=== PATIENT | male | born 1955 | race Caucasian/White ===

== ENCOUNTER 2018-06-21 08:34 | Outpatient (CLI) | payer BC, SELFPAY ==
[2018-06-21 11:36] LABS: CREATININE 0.97 mg/dL (0.70-1.30); Potassium 4.1 mmol/L (3.5-5.1)
[2018-06-21 12:19] LABS: Hemoglobin A1C 7.9 % (4.5-6.2)
== END 2018-06-21 08:54 ==
PROVIDERS: PCP Family Medicine; Visit Provider Family Medicine
DX: I10 Essential (primary) hypertension (principal); E11.9 Type 2 diabetes mellitus without complications
CPT/HCPCS: 36415; 82565; 83036; 84132

== ENCOUNTER 2018-11-15 08:37 | Outpatient (CLI) | payer BC, SELFPAY ==
[2018-11-15 12:21] LABS: Hemoglobin A1C 7.9 % (4.5-6.2)
== END 2018-11-15 08:57 ==
PROVIDERS: PCP Family Medicine; Visit Provider Family Medicine
DX: E11.9 Type 2 diabetes mellitus without complications (principal)
CPT/HCPCS: 36415; 83036

== ENCOUNTER 2019-03-28 09:46 | Outpatient (CLI) | payer BC, SELFPAY ==
[2019-03-28 11:42] LABS: Calculated LDL 113 mg/dL; Cholesterol 181 mg/dL (50-200); HDL Cholesterol 44 mg/dL (40-60); Triglyceride 123 mg/dL (30-150)
[2019-03-31 12:21] LABS: Albumin 60.9 % (55.8-66.1); Monoclonal Spike 3.6 %; Total Protein 6.8 g/dl (6.3-8.2)
== END 2019-03-28 10:06 ==
PROVIDERS: PCP Family Medicine; Visit Provider Family Medicine
DX: E11.9 Type 2 diabetes mellitus without complications (principal); D47.2 Monoclonal gammopathy
CPT/HCPCS: 36415; 80061; 83721; 84165

== ENCOUNTER 2019-09-26 09:11 | Outpatient (CLI) | payer BC, SELFPAY ==
[2019-09-26 11:36] LABS: CREATININE 1.15 mg/dL (0.70-1.30); Potassium 3.7 mmol/L (3.5-5.1)
[2019-09-26 11:49] LABS: Hemoglobin A1C 9.1 % (3.8-5.6)
== END 2019-09-26 09:31 ==
PROVIDERS: PCP Family Medicine; Visit Provider Family Medicine
DX: E11.9 Type 2 diabetes mellitus without complications (principal)
CPT/HCPCS: 36415; 82565; 83036; 84132

== ENCOUNTER 2019-11-21 01:13 | Outpatient (CLI) | payer BC, SELFPAY ==
[2019-11-21 13:25] LABS: Hemoglobin A1C 9.4 % (3.8-5.6)
== END 2019-11-21 01:33 ==
PROVIDERS: PCP Family Medicine; Visit Provider Family Medicine
DX: R73.9 Hyperglycemia, unspecified (principal)
CPT/HCPCS: 36415; 83036

== ENCOUNTER 2021-01-14 11:36 | Outpatient (CLI) | payer MEDICARE, BC, SELFPAY ==
[2021-01-14 12:30] LABS: Abs Immature Grans 0.01 10^3/uL (0.0-0.06); Absolute Basophil Count 0.05 10^3/uL (0.0-0.2); Absolute Lymphocyte Count 1.35 10^3/uL (1.2-3.4); Absolute Monocyte Count 0.52 10^3/uL (0.1-0.8); Absolute Neutrophil Count 3.76 10^3/uL (1.2-6.7); Basophils % 0.8; ESR 22 mm//hr (0-20); HCT 30.1 % (40.0-50.0); HGB 10.3 g/dL (13.5-17.5); Immature Grans % 0.2; Lymphocytes % 22.5; MCH 28.8 pg (27.0-33.0); MCHC 34.2 % (32.0-36.0); MCV 84.1 fL (80-95); MPV 8.9 fL (8.0-11.0); Monocytes % 8.7; Neutrophils % 62.8; Nucleated RBC 0 %; Platelet Count 258 10^3/uL (130-400); RBC 3.58 10^6/uL (4.36-5.78); RDW 12.3 % (11.8-14.1); WBC 5.99 10^3/uL (4.4-10.8)
[2021-01-14 13:38] LABS: ALT 24 U/L (16-63); AST 17 U/L (15-37); Albumin 3.8 g/dL (3.4-5.0); Alkaline Phosphatase 69 U/L (46-116); BUN 38 mg/dL (7-18); Bilirubin, Total 0.3 mg/dL (0.2-1.0); C-Reactive Protein 1.42 mg/dL (0.0-0.3); Calcium 9.6 mg/dL (8.5-10.1); Chloride 101 mmol/L (98-107); Creatine Kinase 171 U/L (39-308); Glucose 170 mg/dL (74-106); Potassium 3.8 mmol/L (3.5-5.1); Sodium 140 mmol/L (136-145); Total Protein 7.6 g/dL (6.4-8.2)
[2021-01-15 14:28] LABS: Iron 58 ug/dL (65-175); Total Iron Binding Capacity 267 ug/dL (250-450); Transferrin Sat 22 % (20-55)
[2021-01-15 14:55] LABS: Ferritin 193 ng/mL (26-388); Vitamin B12 198 pg/mL (193-986)
[2021-01-17 13:27] LABS: Albumin 55.1 % (55.8-66.1); Comment (See Note); Monoclonal Spike 2.2 % (None Seen); Total Protein 7.3 g/dL (6.3-8.2)
[2021-01-21 10:03] LABS: Methylmalonic Acid 0.42 nmol/mL (<=0.40)
== END 2021-01-14 11:37 | disposition home or self-care (01) ==
LOC: LOS 11:37
PROVIDERS: PCP Family Medicine; Visit Provider Family Medicine
DX: R10.9 Unspecified abdominal pain (principal); F48.8 Other specified nonpsychotic mental disorders; F32.9 Major depressive disorder, single episode, unspecified; E11.9 Type 2 diabetes mellitus without complications; R73.9 Hyperglycemia, unspecified; D47.2 Monoclonal gammopathy; I10 Essential (primary) hypertension; N18.9 Chronic kidney disease, unspecified; M62.50 Muscle wasting and atrophy, not elsewhere classified, unspecified site
CPT/HCPCS: 36415; 80053; 80186; 82550; 85652; 82607; 82728; 83540; 83550; 84165; 85025; 86140

== ENCOUNTER → 2021-01-24 10:56 | Outpatient (BNVA) | payer MEDICARE, SELFPAY | PROVIDERS: PCP Family Medicine; Referring Provider Family Medicine; Visit Provider Psychiatry & Neurology Neurology | DX: R53.1 Weakness (principal); R25.2 Cramp and spasm; D64.9 Anemia, unspecified; E11.22 Type 2 diabetes mellitus with diabetic chronic kidney disease; N19 Unspecified kidney failure; I10 Essential (primary) hypertension | CPT/HCPCS: 99215; G2212 ==

== ENCOUNTER 2021-01-31 01:00 | Outpatient (CLI) | payer MEDICARE, SELFPAY ==
--- NOTE | 2021-01-31 07:45 | DI.US_ITS ---
Exam(s) US RENAL EXAM: US RENAL CLINICAL HISTORY: acute renal insufficiency,RENAL FAILURE,N19. TECHNIQUE: Vallejo scale, color and spectral Doppler were used. COMPARISON: CT RENAL COLIC WO CONTRAST from 03/25/2018 FINDINGS: Renal size in cm: Right: 9. Left: 9. Echogenicity: Normal. Hydronephrosis: No. Cyst or mass: 5.4 x 4.4 x 4.2 cm right renal cyst. This is unchanged compared to the prior CT scan. Nephrolithiasis: No. Other findings: Mild bilateral renal cortical thinning. Bladder:Bladder is inadequately distended limiting evaluation. Ureteral jets: Right: Not visualized on this examination. Left: Not visualized on this examination. Prevoid vol:11 cc Postvoid vol:Could not be evaluated on this examination. Prostate: 48 cc Renal color flow: Symmetric and within normal limits. IMPRESSION: 1. Inadequate evaluation of the urinary bladder due to poor prevoid volume. 2. Renal cortical atrophy. 3. Prostatic enlargement. DATA REPOSITORY:
== END 2021-01-31 01:20 ==
PROVIDERS: PCP Family Medicine; Visit Provider Family Medicine
DX: N19 Unspecified kidney failure (principal); N40.0 Benign prostatic hyperplasia without lower urinary tract symptoms; N28.89 Other specified disorders of kidney and ureter
CPT/HCPCS: 76770

== ENCOUNTER 2021-02-22 10:20 | Outpatient (CLI) | payer MEDICARE, SELFPAY ==
[2021-02-22 12:42] LABS: Bilirubin Small (Negative); Blood Trace-intact (Negative); Clarity Clear (Clear); Glucose 500 mg/dL (Negative); Ketones Negative (Negative); Leukocyte Esterase Negative (Negative); Nitrite Negative (Negative); Specific Gravity >= 1.030 (1.005-1.025); pH 5.5 (5-8)
[2021-02-22 12:45] LABS: Anion Gap 11.1 mmol/L (3-11); BUN 23 mg/dL (7-18); CO2 26.9 mmol/L (21.0-32.0); CREATININE 1.8 mg/dL (0.70-1.30); Chloride 100 mmol/L (98-107); Estimated GFR 38.06 (mL/min/1.73m2); Glucose 232 mg/dL (74-106); Potassium 3.8 mmol/L (3.5-5.1); Sodium 138 mmol/L (136-145)
[2021-02-22 13:01] LABS: COMMENT (LAB VIEW ONLY) 236.78 mg/dL
[2021-02-23 08:55] LABS: Homocysteine 11.8 umol/L (5.0-13.9)
== END 2021-02-22 10:21 | disposition home or self-care (01) ==
PROVIDERS: PCP Family Medicine; Visit Provider Family Medicine
DX: I10 Essential (primary) hypertension (principal); E87.1 Hypo-osmolality and hyponatremia; E11.9 Type 2 diabetes mellitus without complications; N19 Unspecified kidney failure; E53.8 Deficiency of other specified B group vitamins; R82.998 Other abnormal findings in urine
CPT/HCPCS: 36415; 80048; 83090; 81003; 81015; 82043; 82570

== ENCOUNTER 2021-08-12 03:04 | Outpatient (CLI) | payer MEDICARE, SELFPAY ==
[2021-08-12 13:16] LABS: Anion Gap 7.5 mmol/L (3-11); BUN 23 mg/dL (7-18); CO2 28.5 mmol/L (21.0-32.0); CREATININE 1.8 mg/dL (0.70-1.30); Calcium 8.9 mg/dL (8.5-10.1); Chloride 105 mmol/L (98-107); Estimated GFR 37.94 (mL/min/1.73m2); Glucose 142 mg/dL (74-106); Potassium 4.2 mmol/L (3.5-5.1); Sodium 141 mmol/L (136-145)
== END 2021-08-12 03:05 | disposition home or self-care (01) ==
LOC: LOS 03:04
PROVIDERS: PCP Family Medicine; Visit Provider Family Medicine
DX: E87.1 Hypo-osmolality and hyponatremia (principal)
CPT/HCPCS: 36415; 80048

== ENCOUNTER 2022-02-15 08:52 | Outpatient (CLI) | payer MEDICARE, SELFPAY ==
[2022-02-16 13:30] LABS: Albumin 53.7 % (55.8-66.1); Albumin g/dL 3.7 g/dL (3.6-5.2); Comment (See Note); Monoclonal Spike 3.5 % (None Seen); Monoclonal Spike g/dL 0.2 g/dL (None Seen); Total Protein 6.9 g/dL (6.3-8.2)
== END 2022-02-15 08:53 | disposition home or self-care (01) ==
LOC: LOS 08:53
PROVIDERS: PCP Family Medicine; Referring Provider Family Medicine; Visit Provider Family Medicine
DX: N19 Unspecified kidney failure (principal)
CPT/HCPCS: 36415; 84165

== ENCOUNTER → 2022-03-14 07:29 | Outpatient (BNVA) | payer MEDICARE, SELFPAY | PROVIDERS: PCP Family Medicine; Referring Provider Family Medicine; Visit Provider Surgery | DX: Z86.010 Personal history of colon polyps (principal); E11.9 Type 2 diabetes mellitus without complications; N18.32 Chronic kidney disease, stage 3b; Z12.11 Encounter for screening for malignant neoplasm of colon ==

== ENCOUNTER 2022-03-27 07:39 | Day surgery (SDC) | payer MEDICARE, SELFPAY ==
--- NOTE | 2022-03-27 06:53 | COLE_ITS ---
Colonoscopy Report Date of procedure: 03/27/22 Pre-op diagnosis general: Colon Cancer Screening and Hx of polyps Procedure: Colonoscopy with polypectomy Surgeon: Armida Cobb Anesthesia Type: General:No Airway Estimated blood loss (mL): 2 Pathology: other (ascending colon polyp) Complications: None Disposition: same day Indications: Osvaldo is back to see me today for a follow-up colonoscopy.? He was noted to have 4 tubular adenomas back in 2018.? He has had no changes in bowel habits, melena, hematochezia or unintentional weight loss.? He has no family history of colon cancer.? The procedure was discussed with him and his in detail.? We reviewed the risks and benefits as well as complications.? Because of his renal disease we will give him GoLytely for his prep instead of MiraLAX. Prep: Miralax/Dulcolax Procedure Start Time: 09:26 Procedure End Time: 09:46 Retraction Time: 11 minutes Findings: One small sessile polyp Procedure Description: After informed consent was obtained the patient was taken to the procedure room and placed in a left decubitous position. Monitors were applied and a time out was done. The patients name, date of , procedure, allergies to medications and metal in their body was reviewed. The patient was then sedated. Once sedated and comfortable a rectal exam was done. External exam was normal. Internal exam revealed a normal sphincter tone and no palpable masses. The prostate felt smooth but enlarged. The scope was then introduced and retro-flexed. No internal hemorrhoids, polyps or masses were identified on retro-flexion. The scope was then advanced to the cecum without difficulty. The ileocecal vlave and appendiceal orifice were michael ntified. The prep was good. The scope was then slowly retracted over 11 minutes back into the rectum. Polyps were removed with cold forceps in the ascending colon. There was no diverticulosis noted. The scope was removed and the patient was woken up and taken back to Same day surgery in stable condition. The patient tolerated the procedure well and there were no immediate complications. Follow up: The patient should follow up in 5 years unless they develop changes in bowel habits or other new gastrointestinal complaints.
--- NOTE | 2022-03-27 06:54 | W.PM.DSUDISC ---
Discharge Plan Disposition Patient Disposition: HOME Condition: Good Discharge Details Reason For Visit: colon cancer screening and hx of polyps Attending Provider: Armida Cobb Primary Care Provider: Kit Sawyer Home Meds and New Rx's Prescriptions: Continued (DME) lancets [OneTouch Delica Lancets] 33 gauge misc 1 ea Miscellaneous DAILY Qty: 100 4RF Label Comments: pt. states he hasn't used in over 6 mo. Rx Instructions: DX:E11.9 test once daily (DME) blood sugar diagnostic Strip 1 ea Miscellaneous DAILY Qty: 100 3RF Rx Instructions: test sugar daily triamcinolone acetonide 0.1 % ointment 1 applic topical BID PRN (Reason: leg rash) Qty: 30 2RF fluticasone propionate 50 mcg/actuation spray,suspension 100 mcg NS DAILY PRN (Reason: allergy symptoms) Qty: 60 2RF cyanocobalamin (vitamin B-12) 1,000 mcg tablet 1,000 mcg PO DAILY Qty: 90 3RF metoprolol tartrate 50 mg tablet 50 mg PO BID Qty: 180 4RF atorvastatin 20 mg tablet 20 mg PO QPM Qty: 90 2RF glipizide 10 mg tablet 5 mg PO BID Qty: 180 2RF Rx Instructions: dose reduction 07/06/21 lisinopril 20 mg tablet 20 mg PO BID Qty: 180 3RF Rx Instructions: increase per nephrology nifedipine 30 mg tablet extended release 24hr 60 mg PO DAILY Qty: 90 2RF Rx Instructions: double dose 06/30/20 MJS potassium chloride 10 mEq capsule, extended release 10 meq PO DAILY Qty: 90 3RF Janumet 50-1,000 mg tablet 0.5 tab PO BID Qty: 180 3RF Rx Instructions: dose reduction 02/15/22 omega-3 fatty acids 1,000 MG capsule 1,000 mg PO DAILY Discontinued peg 3350-electrolytes [Golytely] 236-22.74-6.74 -5.86 gram recon soln 240 ml PO Q10M Qty: 4000 0RF Rx Instructions: until fecal effluent is clear Discharge Instructions Additional Instructions: Findings: One small polyp Follow up: 5 years Please call if you develop: fevers >101.5 Nausea or Vomiting Abdominal pain that is not transient Rectal bleeding that is more then a tbsp A hard abdomen and inability to pass gas DAY SURGERY UNIT POST ENDOSCOPY INSTRUCTIONS Instructions for everyone who is given Anesthesia: For your safety, please do the following for the next 24 Hours: a. Do not drive or operate dangerous equipment b. Do not drink alcohol beverages or use any recreational drugs for the first 24 hours or while taking pain medications. The medications in your body may have a reaction that can be dangerous. c. Do not make any important decisions or sign any important papers 1. Generally there are no restrictions on your activity after a day or so has gone by, but you may feel a bit fatigued for a few days. 2. After you arrive home you may have a light meal and return to a normal diet as you can tolerate it without feeling sick to your stomach. 3. After surgery, you may feel pain or discomfort. This should be only transient, but if it persists please contact your doctor. 4. If there are any questions regarding the findings of your procedure, please feel free to contact your doctor. 6. If you are unable to contact your doctor with a problem, contact the hospital at [phone]. 7. Continue all your regular medications unless directed otherwise. I understand the above instructions and have no questions. Signature of Patient or Responsible Adult Escort Date/Time Name of Responsible Adult Escort Signature of Nurse Date/Time Activity:: Activity as Tolerated Diet:: As Tolerated Discharge Orders Discharge Orders: Discharge Order (Routine); Ordered 03/27/22 Ordered By: Armida Cobb
--- NOTE | 2022-03-27 06:59 | W.ANESPRE ---
General Info Date of Service Date Performed: 03/27/22 Height: 5 ft 6 in Weight: 81.817 kg Body Mass Index (BMI): 29.1 Surgical Procedure: Operation Date: 03/27/22 09:35 Proposed Procedure Side Surgeon p Colonoscopy Armida Cobb MD Meds Allergies and Home Medications Allergies Allergy/AdvReac Type Severity Reaction Status Date / Time No Known Allergies Allergy Verified 03/27/22 07:53 Home Medication Medication Instructions Recorded omega-3 fatty acids 1,000 mg 1,000 mg PO DAILY 12/02/12 capsule blood sugar diagnostic #100 strips 09/26/19 fluticasone propionate 50 100 mcg NS DAILY PRN allergy 02/12/20 mcg/actuation nasal symptoms #60 sprays spray,suspension lancets 33 gauge (OneTouch Delica #100 ea 06/22/20 Lancets) triamcinolone acetonide 0.1 % 1 applic topical BID PRN leg rash 09/16/21 topical ointment #30 grams cyanocobalamin (vitamin B-12) 1,000 mcg PO DAILY #90 tabs 11/21/21 1,000 mcg tablet metoprolol tartrate 50 mg tablet 50 mg PO BID #180 tab-caps 11/21/21 atorvastatin 20 mg tablet 20 mg PO QPM #90 tabs 02/22/22 glipizide 10 mg tablet 5 mg PO BID #180 tab-caps 02/22/22 lisinopril 20 mg tablet 20 mg PO BID #180 tabs 02/22/22 nifedipine 30 mg tablet,extended 60 mg PO DAILY #90 tab-caps 02/22/22 release 24 hr potassium chloride 10 mEq 10 meq PO DAILY #90 tab-caps 02/23/22 capsule,extended release peg 3350-electrolytes 236 240 ml PO Q10M #4,000 mL 03/14/22 gram-22.74 gram-6.74 gram-5.86 gram solution (Golytely) sitagliptin 50 mg-metformin 1,000 0.5 tab PO BID #180 tab-caps 03/17/22 mg tablet (Janumet) Current Visit Medications: Current Medications Generic Name Dose Route Start Last Admin Trade Name Freq PRN Reason Stop Dose Admin Hyoscyamine Sulfate 0.125 mg 03/27/22 06:54 Hyoscyamine 0.125 Mg Sl/Oral/Chew SL DIRECTED PRN Ringer's Solution 1,000 mls @ 80 mls/hr 03/27/22 06:00 IV 04/23/22 23:59 [facility] IV Miscellaneous Supplies 1 each 03/27/22 06:00 Iv Access IV 04/23/22 23:59 DIRECTED DUSTY Ondansetron HCl 4 mg 03/27/22 06:54 Ondansetron 4 Mg/2 Ml Vial IVP Q4H PRN PRN Nausea / Vomiting Sodium Chloride 0 ml 03/27/22 06:00 Normal Saline Flush 10 Ml Syr IV 04/23/22 23:59 PRN PRN Sodium Chloride 0 ml 03/27/22 06:00 Normal Saline 10 Ml Vial IJ 04/23/22 23:59 DIRECTED PRN Sterile Water 0 ml 03/27/22 06:00 Water,Injection,Sterile 10 Ml Vial IJ 04/23/22 23:59 DIRECTED PRN PFSH Active Problems Active Problems: Problem Status Onset Code Screening for colon cancer Z12.11 Renal failure N19 Anemia D64.9 Weakness R53.1 MGUS (monoclonal gammopathy of unknown significance) D47.2 Diabetes mellitus E11.9 Tubular adenoma 04/08/18 D36.9 Medical History Medical History B12 deficiency Controlled diabetes mellitus (12/23/12) Depressive disorder Diabetic nephropathy with proteinuria DM (diabetes mellitus) Elbow pain, right prn ibuprofen or tylenol Essential hypertension (07/23/13) HTN (hypertension) Hyperlipidemia with target LDL less than 100 Hypertension Leg cramps Low blood sugar Lumbar radiculopathy 04/22/13 [place] [facility] [place] L4[place]L5 LATERAL DISCECTOMY Muscle wasting Nephrolithiasis Non-alcoholic fatty liver disease Non-alcoholic fatty liver disease Spinal stenosis Surgical History Surgical History Colonoscopy - [facility] (04/08/18) History of discectomy LATERAL DISCECTOMY (04/22/13) RIGHT L4-L5 FAR [place] [place] Tobacco Smoking/Tobacco Use Status: Never Passive smoking exposure: No Second hand exposure: Yes Alcohol Alcohol Intake: current Alcohol intake frequency: holidays/special occasions only Alcohol type: beer Substance Use Substance use: Never Substance use type: does not use Vital Signs and Lab Results Lab Results Blood Type / Crossmatch: No Data to Display Complete Blood Count: No Data to Display Complete Metabolic Panel: No Data to Display Liver Function Panel: No Data to Display Coagulation Panel: No Data to Display Cardiac Panel: No Data to Display Arterial Blood Gas: No Data to Display Venous Blood Gas: No Data to Display Pancreas Panel: No Data to Display Thyroid Panel: No Data to Display Infectious Disease: No Data to Display Blood Cultures: No Data to Display Toxicology Panel: No Data to Display Anesthesia Assessment and Plan Anesthesia History Personal History: No History of Anesthesia Complications Family History: No Family History of Anesthesia Complications Exercise Tolerance Exercise Tolerance: Metabolic Equivalents>4 Pertinent Negatives Pertinent Negatives: No Symptoms of GERD, No Major Cardiovascular Symptoms or Complaints, No Major Pulmonary Symptoms or Complaints and No History of CVA/TIA Cardiac & Pulmonary Exam Cardiac Exam: Normal S1/S2 Heart Sounds Pulmonary Exam: Clear Bilateral Breath Sounds Implantable Cardiac Device Does patient have a Pacemaker or an ICD?: No Airway Exam Known Difficult Airway: No Mallampati Class: 2 Mouth Opening: Normal (> 3cm) Thyromental Distance: Greater than 3 cm Neck Range of Motion: Full ROM Neck Circumference: Normal Teeth Condition: Generalized Poor Dentition ASA Classification ASA Score: ASA 3 Emergency Case?: No NPO Status NPO Status: NPO Clears >2 hours, Solids >8 hours Anesthesia Plan Resuscitation Status: Full Code Anesthesia Technique: General Anesthesia Airway Planned: Natural Airway Monitors Used: Standard Monitors
[2022-03-27 07:40] VITALS: BP 141/99; PULSE 81; RESP 18; TEMP 36.7; O2SAT 98
[2022-03-27] MEDS: Lactated Ringers 1,000 ML 80 ML IV (08:23)
[2022-03-27 09:21] VITALS: BMI 29.1
--- NOTE | 2022-03-27 09:37 | BOWEL_PTH ---
PATIENT: Osvaldo Arcos LOC: [facility] U#:[id number] AGE/SX: 66/M ROOM: RE03/27/[address]: Armida Cobb MD : [id number] BED: DIS: 03/27/2022 SPEC #: [id number] RECD: 03/27/22 13:03 STATUS: HUMBERTO REQ #: [id number] CHRISTINA: 03/27/22 09:[address]: Armida Cobb DEPT: Surgical Specimen RECD BY: Evelyn Shay ENTERED: 03/27/22 13:04 SP TYPE: Bowel OTHR DR: Kit Sawyer MD Tissues: 1 - BIOPSY BOWEL Procedures: GROSS AND MICRO LEVEL 4 Comments: [id number]
[2022-03-27 09:50] VITALS: BP 119/82; PULSE 72; RESP 16; TEMP 36.5; O2SAT 98
[2022-03-27 10:20] VITALS: BP 132/80; PULSE 80; RESP 18; TEMP 36.4; O2SAT 98
--- NOTE | 2022-03-27 13:07 | W.ANESPOSTOP ---
Postoperative Evaluation Date, Time and Location Date Performed: 03/27/22 Time Performed: 12:55 Patient Location: Day Surgery Unit Vital Signs Most Recent Imported Vital Signs: Most Recent Vital Signs Temp Pulse Resp BP Pulse Ox 36.4 C L 80 18 132/80 98 03/27/22 10:20 03/27/22 10:20 03/27/22 10:20 03/27/22 10:20 03/27/22 10:20 Pain Score Most Recent Pain Score: Most Recent Pain Score Pain Level 0 03/27/22 10:20 Assessment Mental Status: Awake (Alert & Oriented to Patient Baseline) Airway and Respiratory Function: Patent airway with normal (patient baseline) respiratory exam Cardiovascular Function: Hemodynamically Stable Hydration Status: Adequately Hydrated Nausea & Vomiting: No Nausea or Vomiting Pain: Pt. Denies Any Pain Peripheral Nerve Block: Patient did not receive a nerve block Postoperative Comments:: Seen earlier today. Patient was appropriate to go home.
== END 2022-03-27 10:30 | disposition home or self-care (01) ==
PROVIDERS: PCP Family Medicine; Visit Provider Surgery
PROC: 0DJD8ZZ Inspection of Lower Intestinal Tract, Via Natural or Artificial Opening Endoscopic (ICD-10-PCS; CPT 45378; principal; 2022-03-27 09:30)
DX: Z12.11 Encounter for screening for malignant neoplasm of colon (principal); K63.5 Polyp of colon; E11.9 Type 2 diabetes mellitus without complications; I10 Essential (primary) hypertension; K76.0 Fatty (change of) liver, not elsewhere classified; D47.2 Monoclonal gammopathy; Z86.010 Personal history of colon polyps
CPT/HCPCS: 45380; 88305

== ENCOUNTER 2022-05-17 02:44 | Outpatient (CLI) | payer MEDICARE, SELFPAY ==
[2022-05-17 12:42] LABS: CREATININE 2.1 mg/dL (0.70-1.30); Estimated GFR 31.76 (mL/min/1.73m2)
== END 2022-05-17 02:45 | disposition home or self-care (01) ==
LOC: LOS 02:44
PROVIDERS: PCP Family Medicine; Visit Provider Family Medicine
DX: I10 Essential (primary) hypertension (principal)
CPT/HCPCS: 36415; 82565

== ENCOUNTER 2022-05-18 12:37 | Outpatient (REF) | payer MEDICARE, SELFPAY ==
[2022-05-19 00:27] LABS: Albumin, Ur > 114.0 mg/dL (See Note); Creatinine, Ur 174.6 mg/dL (See Note)
== END 2022-05-18 12:38 | disposition home or self-care (01) ==
LOC: LBN 12:37
PROVIDERS: PCP Family Medicine; Visit Provider Family Medicine
DX: E11.9 Type 2 diabetes mellitus without complications (principal)
CPT/HCPCS: 82043; 82570

== ENCOUNTER 2022-09-21 08:44 | Outpatient (CLI) | payer MEDICARE, SELFPAY ==
[2022-09-21 12:32] LABS: HCT 37.1 % (40.0-50.0); HGB 12.5 g/dL (13.5-17.5); MCH 28.6 pg (27.0-33.0); MCHC 33.7 % (32.0-36.0); MCV 85 fL (80-95); MPV 9.5 fL (8.0-11.0); Platelet Count 273 10^3/uL (130-400); RBC 4.37 10^6/uL (4.36-5.78); RDW 12.2 % (11.8-14.1); RDW-SD 37.8 fL
[2022-09-21 12:49] LABS: BUN 35 mg/dL (7-18); CREATININE 2.4 mg/dL (0.70-1.30); Calcium 8.9 mg/dL (8.5-10.1); Chloride 104 mmol/L (98-107); Estimated GFR 28.85 (mL/min/1.73m2); Glucose 189 mg/dL (74-106); Potassium 4.1 mmol/L (3.5-5.1); Sodium 139 mmol/L (136-145)
== END 2022-09-21 08:45 | disposition home or self-care (01) ==
LOC: LOS 08:45
PROVIDERS: PCP Family Medicine; Visit Provider Family Medicine
DX: R53.83 Other fatigue (principal); E87.1 Hypo-osmolality and hyponatremia
CPT/HCPCS: 36415; 80048; 85027

== ENCOUNTER 2023-01-30 21:09 | Outpatient (REF) | payer MEDICARE, SELFPAY ==
[2023-01-30 22:03] LABS: COMMENT (LAB VIEW ONLY) 159.71 mg/dL
== END 2023-01-30 21:10 | disposition home or self-care (01) ==
LOC: LBN 21:09
PROVIDERS: PCP Family Medicine; Visit Provider Family Medicine
DX: E11.9 Type 2 diabetes mellitus without complications (principal)
CPT/HCPCS: 82043; 82570

== ENCOUNTER 2023-09-19 10:35 | Outpatient (CLI) | payer MEDICARE, SELFPAY ==
[2023-09-19 12:39] LABS: CREATININE 2.3 mg/dL (0.70-1.30); Calculated LDL 53 mg/dL (<100); Cholesterol 117 mg/dL (<200); Estimated GFR 30.17 (mL/min/1.73m2); HDL Cholesterol 45 mg/dL (40-60); Potassium 3.8 mmol/L (3.5-5.1); Triglyceride 95 mg/dL (<150)
== END 2023-09-19 10:36 | disposition home or self-care (01) ==
LOC: LOS 10:35
PROVIDERS: PCP Family Medicine; Visit Provider Family Medicine
DX: I10 Essential (primary) hypertension (principal); E78.5 Hyperlipidemia, unspecified
CPT/HCPCS: 36415; 80061; 82565; 84132

== ENCOUNTER 2024-02-07 00:54 | Outpatient (CLI) | payer MEDICARE, SELFPAY ==
[2024-02-07 12:57] LABS: Hemoglobin A1C 7.2 % (<5.7)
== END 2024-02-07 00:55 | disposition home or self-care (01) ==
LOC: LOS 00:54
PROVIDERS: PCP Family Medicine; Visit Provider Family Medicine
DX: E11.9 Type 2 diabetes mellitus without complications (principal)
CPT/HCPCS: 36415; 83036

== ENCOUNTER 2024-02-19 13:46 | Outpatient (REF) | payer MEDICARE, SELFPAY ==
[2024-02-19 21:04] LABS: COMMENT (LAB VIEW ONLY) 167.12 mg/dL
== END 2024-02-19 13:47 | disposition home or self-care (01) ==
LOC: LBN 13:46
PROVIDERS: PCP Family Medicine; Visit Provider Family Medicine
DX: E11.9 Type 2 diabetes mellitus without complications (principal)
CPT/HCPCS: 82043; 82570

== ENCOUNTER 2024-08-26 08:29 | Outpatient (CLI) | payer MEDICARE, SELFPAY ==
[2024-08-26 12:33] LABS: HCT 42.5 % (40.0-50.0); HGB 14.5 g/dL (13.5-17.5); MCH 29.5 pg (27.0-33.0); MCHC 34.1 % (32.0-36.0); MCV 86 fL (80-95); MPV 9.2 fL (8.0-11.0); Platelet Count 263 10^3/uL (130-400); RBC 4.92 10^6/uL (4.36-5.78); RDW 12.3 % (11.8-14.1); RDW-SD 39.2 fL; WBC 7.49 10^3/uL (4.4-10.8)
[2024-08-26 12:40] LABS: Anion Gap 11.2 mmol/L (3-11); BUN 31 mg/dL (7-18); CO2 25.8 mmol/L (21.0-32.0); CREATININE 2.2 mg/dL (0.70-1.30); Calcium 9.4 mg/dL (8.5-10.1); Chloride 104 mmol/L (98-107); Estimated GFR 31.63 (mL/min/1.73m2); Glucose 201 mg/dL (74-106); Potassium 3.8 mmol/L (3.5-5.1); Sodium 141 mmol/L (136-145)
== END 2024-08-26 08:30 | disposition home or self-care (01) ==
LOC: LOS 08:29
PROVIDERS: PCP Family Medicine; Referring Provider Family Medicine; Visit Provider Family Medicine
DX: E87.1 Hypo-osmolality and hyponatremia (principal); R53.83 Other fatigue
CPT/HCPCS: 36415; 80048; 85027